=== PATIENT | female | born 1970 | race African-American/Black ===

== ENCOUNTER 2017-01-01 11:48 | Inpatient (IN) | payer OTHER, MEDICAID ==
[~2017-01-01] VITALS: Ht 165.1 cm; Wt 82.6 kg
[2017-01-01] VITALS (30 sets, daily range): BP systolic 104–170; BP diastolic 53–104
[2017-01-01 12:32] LABS: BASOPHILS % 0.6 % (0.0-2.0); EOSINOPHILS % 0.5 % (0.0-5.0); HEMATOCRIT. 40.5 % (36.0-48.0); HEMOGLOBIN. 13.8 g/dL (12.0-16.0); LYMPHOCYTES % 15.4 % (20.0-50.0); MEAN CORPUSCULAR HEMOGLOBIN 34.5 pg (28.0-32.0); MEAN CORPUSCULAR VOLUME 101.3 fL (81.0-99.0); MEAN PLATELET VOLUME 7.1 fl (7.4-10.4); MONOCYTES % 6.1 % (2.0-8.0); NEUTROPHILS % 77.4 % (40.0-76.0); PLATELET 289 x1000/uL (130-400); RED CELL DISTRIBUTION WIDTH 14.2 % (11.6-14.6)
[2017-01-01 12:40] LABS: INR 2.4; PARTIAL THROMBOPLASTIN TIME 33.1 sec (23.4-31.0); PROTHROMBIN TIME 24.9 sec (9.4-11.6)
[2017-01-01 12:41] LABS: HCG SCREEN NEGATIVE
[2017-01-01 12:46] LABS: CARBON DIOXIDE 27 mEq/L (21-32); CHLORIDE 98 mEq/L (98-107); PHOSPHORUS 4.6 mg/dL (2.5-4.9); TROPONIN I < 0.02 ng/mL (0.00-0.04)
[2017-01-01] MEDS ORDERED: PHYTONADIONE 10MG/ML AMP IM ONE (13:15)
[2017-01-01] MEDS ORDERED: PHENYTOIN SODIUM 500 MG in SODIUM CHLORIDE 0.9% 50 ML IV ONE (13:15)
[2017-01-01] MEDS ORDERED: LABETALOL 5MG/ML SYR 20 MG/4 ML SYRINGE IV ONE (13:30)
[2017-01-01] MEDS ORDERED: ONDANSETRON HCL 4MG/2ML VIAL IV ONE ×2 (13:30→14:15)
[2017-01-01] MEDS ORDERED: MORPHINE SULFATE 2 MG/ML CPJ (NOT FOR IM USE) IV ONE (14:15)
[2017-01-01] MEDS: DEXT 5%/LACTATED RINGERS 1,000 ML IV SCH (14:15)
[2017-01-01] MEDS ORDERED: MORPHINE SULFATE 2 MG/ML CPJ (NOT FOR IM USE) IV PRN (14:15)
[2017-01-01] MEDS ORDERED: NICARDIPINE 100 MG in SODIUM CHLORIDE 0.9% 60 ML IV PRN ×2 (16:30→17:00)
[2017-01-01] MEDS ORDERED: MORPHINE SULFATE 2 MG/ML CPJ (NOT FOR IM USE) IV NR (17:15)
[2017-01-01] MEDS: MORPHINE SULFATE 2 MG/ML CPJ (NOT FOR IM USE) IV PRN ×2 (17:25→21:25)
[2017-01-01] MEDS ORDERED: WARF2TAB55 PO (19:30)
[2017-01-01] MEDS ORDERED: CALC667T2 PO (19:45)
[2017-01-01] MEDS: PHENYTOIN SODIUM 100MG/2ML VIAL IV SCH (21:25)
[2017-01-02] VITALS (55 sets, daily range): BP systolic 94–156; BP diastolic 39–96
[2017-01-02] MEDS: MORPHINE SULFATE 2 MG/ML CPJ (NOT FOR IM USE) IV PRN ×4 (02:00→20:22)
[2017-01-02 04:52] LABS: BASOPHILS % 0.5 % (0.0-2.0); EOSINOPHILS % 0.5 % (0.0-5.0); HEMATOCRIT. 38.4 % (36.0-48.0); HEMOGLOBIN. 12.9 g/dL (12.0-16.0); LYMPHOCYTES % 11.5 % (20.0-50.0); MEAN CORPUSCULAR HEMOGLOBIN 34.3 pg (28.0-32.0); MEAN CORPUSCULAR VOLUME 102.1 fL (81.0-99.0); MEAN PLATELET VOLUME 7.2 fl (7.4-10.4); MONOCYTES % 7.2 % (2.0-8.0); NEUTROPHILS % 80.3 % (40.0-76.0); PLATELET 265 x1000/uL (130-400); RED BLOOD CELL COUNT 3.76 mill/uL (4.2-5.4); RED CELL DISTRIBUTION WIDTH 14.5 % (11.6-14.6)
[2017-01-02 05:09] LABS: CARBON DIOXIDE 30 mEq/L (21-32); CHLORIDE 97 mEq/L (98-107); PHOSPHORUS 7.9 mg/dL (2.5-4.9)
[2017-01-02 05:31] LABS: INR 1.8; PROTHROMBIN TIME 18.5 sec (9.4-11.6)
[2017-01-02] MEDS: PHENYTOIN SODIUM 100MG/2ML VIAL IV SCH (06:39)
[2017-01-02] MEDS: PHYTONADIONE 10MG/ML AMP SUBCUT SCH (08:41)
[2017-01-02] MEDS: ONDANSETRON HCL 4MG/2ML VIAL IV PRN ×2 (09:39→20:21)
[2017-01-02] MEDS: DEXT 5%/LACTATED RINGERS 1,000 ML IV SCH ×2 (10:15→15:42)
[2017-01-02] MEDS: CALCIUM ACETATE 667MG CAPSULE PO SCH ×2 (13:46→18:42)
[2017-01-02] MEDS: PHENYTOIN SODIUM EXTENDED 100MG CAPSULE PO SCH ×2 (13:51→21:10)
[2017-01-02] MEDS: MINERAL OIL/PETROLATUM,WHITE CREAM 113GM JAR TOP SCH ×2 (13:59→18:42)
[2017-01-02] MEDS ORDERED: DEXTROSE 50% WATER 50ML SYRINGE IV PRN (21:45)
[2017-01-03] VITALS (18 sets, daily range): BP systolic 133–160; BP diastolic 70–95
[2017-01-03] MEDS ORDERED: BLOOD SUGAR DIAGNOSTIC STRIP TEST SCH
[2017-01-03] MEDS ORDERED: INSULIN LISPRO 100 UNITS/ML SUBCUT SCH
[2017-01-03] MEDS: ONDANSETRON HCL 4MG/2ML VIAL IV PRN ×3 (02:48→16:47)
[2017-01-03] MEDS: MORPHINE SULFATE 2 MG/ML CPJ (NOT FOR IM USE) IV PRN ×4 (02:52→18:40)
[2017-01-03 05:43] LABS: BASOPHILS % 0.5 % (0.0-2.0); EOSINOPHILS % 1.1 % (0.0-5.0); HEMATOCRIT. 36.6 % (36.0-48.0); HEMOGLOBIN. 12.1 g/dL (12.0-16.0); LYMPHOCYTES % 17.5 % (20.0-50.0); MEAN CORPUSCULAR HEMOGLOBIN 34.2 pg (28.0-32.0); MEAN CORPUSCULAR VOLUME 103.5 fL (81.0-99.0); MEAN PLATELET VOLUME 7.3 fl (7.4-10.4); MONOCYTES % 10.1 % (2.0-8.0); NEUTROPHILS % 70.8 % (40.0-76.0); PLATELET 243 x1000/uL (130-400); RED BLOOD CELL COUNT 3.53 mill/uL (4.2-5.4); RED CELL DISTRIBUTION WIDTH 14.5 % (11.6-14.6)
[2017-01-03 06:16] LABS: CARBON DIOXIDE 29 mEq/L (21-32); CHLORIDE 106 mEq/L (98-107); PHOSPHORUS 5.3 mg/dL (2.5-4.9)
[2017-01-03] MEDS: CALCIUM ACETATE 667MG CAPSULE PO SCH ×3 (06:46→18:32)
[2017-01-03] MEDS: PHENYTOIN SODIUM EXTENDED 100MG CAPSULE PO SCH ×2 (06:46→14:00)
[2017-01-03] MEDS ORDERED: FOLIC ACID/VITAMIN B COMP W-C TABLET PO SCH (09:00)
[2017-01-03] MEDS: MINERAL OIL/PETROLATUM,WHITE CREAM 113GM JAR TOP SCH ×2 (09:00→17:00)
[2017-01-03] MEDS: PHYTONADIONE 10MG/ML AMP SUBCUT SCH (09:05)
[2017-01-03] MEDS ORDERED: HYDROCODONE/ACETAMINOPHEN 10/325MG TABLET PO PRN (10:15)
[2017-01-03] MEDS ORDERED: PHYTONADIONE 10MG/ML AMP SUBCUT ONE (10:45)
[2017-01-03] MEDS ORDERED: AMLODIPINE 5MG TABLET PO SCH (11:30)
[2017-01-03 17:00] LABS: INR 1.2; PROTHROMBIN TIME 12.4 sec (9.4-11.6)
== END 2017-01-03 21:20 | disposition short-term general hospital (02) | DRG 64 ==
LOC: ER 11:48 → MICUSO 13:29 → ENRESERV 14:46
PROVIDERS: ADMIT Family Medicine; ATTEND Family Medicine
PROC: 30233L1 Transfusion of Nonautologous Fresh Plasma into Peripheral Vein, Percutaneous Approach (ICD-10-PCS; principal; 2017-01-01)
PROC: 30233K1 Transfusion of Nonautologous Frozen Plasma into Peripheral Vein, Percutaneous Approach (ICD-10-PCS; 2017-01-01)
PROC: 5A1D70Z Performance of Urinary Filtration, Intermittent, Less than 6 Hours Per Day (ICD-10-PCS; 2017-01-02)
PROC: 5A1D70Z Performance of Urinary Filtration, Intermittent, Less than 6 Hours Per Day (ICD-10-PCS; 2017-01-03)
DX: I62.00 Nontraumatic subdural hemorrhage, unspecified (principal); N18.6 End stage renal disease; E83.39 Other disorders of phosphorus metabolism; I12.0 Hypertensive chronic kidney disease with stage 5 chronic kidney disease or end stage renal disease; Z79.01 Long term (current) use of anticoagulants; N25.81 Secondary hyperparathyroidism of renal origin; D64.9 Anemia, unspecified; E78.5 Hyperlipidemia, unspecified; Z96.641 Presence of right artificial hip joint; R21 Rash and other nonspecific skin eruption; L81.4 Other melanin hyperpigmentation; E87.6 Hypokalemia; Z82.49 Family history of ischemic heart disease and other diseases of the circulatory system; Z86.718 Personal history of other venous thrombosis and embolism; Z86.73 Personal history of transient ischemic attack (TIA), and cerebral infarction without residual deficits; Z98.84 Bariatric surgery status; Z99.2 Dependence on renal dialysis; Z91.041 Radiographic dye allergy status
CPT/HCPCS: 36415; 70450; 70544; 70553; 71010; 80053; 83690; 83735; 84100; 84443; 84484; 84703; 85025; 85610; 85730; 86850; 86900; 86927; 93005; 93970; 96365; 96372; 96375; 96376; 99291; J1165; J2270; J2405; J3430; J3490; J7030; J7050; J7121; P9017